=== PATIENT | female | born 1985 | race Caucasian/White ===

== ENCOUNTER 2019-09-27 20:35 | Emergency (ER) | payer MEDICAID ==
[~2019-09-27] VITALS: Ht 157.5 cm; Wt 66.8 kg
[~2019-09-27 20:35] MED LIST: NO HOME MEDS
[2019-09-27 20:38] VITALS: BP 104/66
--- NOTE | 2019-09-27 22:39 | NUR ---
Spica splint placed on right hand
== END 2019-09-27 22:56 | disposition home or self-care (01) ==
LOC: ER 20:36
DX: M25.531 Pain in right wrist (principal); Z56.0 Unemployment, unspecified; Z79.2 Long term (current) use of antibiotics; Z88.8 Allergy status to other drugs, medicaments and biological substances
CPT/HCPCS: 29125; 73130; 99283

== ENCOUNTER 2024-12-11 00:12 | Emergency (ER) | payer MEDICAID ==
[~2024-12-11] VITALS: Ht 157.5 cm; Wt 72.0 kg
--- NOTE | 2024-12-11 00:31 | Physician Documentation ---
History of Present Illness ~ Chief Complaint: Anxiety Stated Complaint: PANIC ATTACK Time Seen by MD: 00:28 Primary Medical Doctor: Dr. Gallagher HPI Patient presents to the emergency room with chief complaint labeled as panic attack. Upon entering to the room patient is playing on her phone. Asked how she is doing she states she is okay. Asked if that has anything I can do for her and she said no Medication Reconciliation Allergies: Coded Allergies: erythromycin base (Unverified Allergy, Unknown, 12/11/24) hydrocodone bit (Unverified Allergy, Unknown, 12/11/24) propoxyphene napsylate (Unverified Allergy, Unknown, 12/11/24) Miscellaneous Medications Home Med List (No Home Medications), (Reported) Past Medical History Past Medical History: No Pertinent History Past Surgical History: Alcohol Use: None Drug Use: none Lives with: Other Lives In: Home Occupation: unemployed Review of Systems ROS All review of systems negative except as per HPI Physical Exam Vital Signs: Temperature: 98.2, Source: Oral, Heart Rate: 108, Respiratory Rat e: 18, BP: 146/88, Pulse Oximetry: 96, Weight: 72.000 Oxygen Flow Rate: 0 Physical Exam General: Patient is awake, alert, oriented x4 in no acute distress and well appearing. Playing on her phone Head: Normocephalic and atraumatic. Eyes: Conjunctival normal. EOMI. PERRL. ENT: Mucous membranes moist. Neck: Supple, trachea is midline. Chest: Clear to auscultation bilaterally without rales, rhonchi, or wheezes. There is no accessory muscle use or retractions. Cardiac: Heart rate 90 and regular without murmurs, gallops, or rubs. Progress Results/Orders Results/Orders Vital Signs 12/11/24 00:13 Temp 98.2 Pulse 108 Resp 18 B/P (MAP) 146/88 Pulse Ox 96 O2 Flow Rate 0 Medical Decision Making Additional information obtaine: old records Findings Patient presents to the emergency room to be evaluated brought in by EMS for apparent panic attack however she has no complaints at this time. I do not feel emergent labs or imaging is necessary. Vital signs stable Differential Dx:Considerations: Include: Alcohol abuse, Anxiety, Bipolar disorder, Conversion disorder, Depression, Encephaloathy, Homicidal, Panic disorder, Personality disorder, Schizophrenia, Substance abuse, Suicidal, Other Departure Disposition: HOME / SELF CARE / HOMELESS Impression: Primary Impression: General medical exam Condition: Stable Discharge Instructions: General Discharge Instructions Referrals: NO PRIMARY CARE PROVIDER (PCP) Signature Scribe Signature: No scribe Attestation: The note accurately reflects work and decisions made by me.oRb Quigley MD 12/11/24 00:31 ROB QUIGLEY MD Dec 11, 2024 00:31
[2024-12-11 00:55] VITALS: BP 146/88; PULSE 89; RESP 18; O2SAT 96
[2024-12-11 01:08] VITALS: TEMP 98.2
== END 2024-12-11 01:10 | disposition home or self-care (01) ==
LOC: ER 00:12
DX: Z00.00 Encounter for general adult medical examination without abnormal findings (principal); F41.0 Panic disorder [episodic paroxysmal anxiety]; Z88.1 Allergy status to other antibiotic agents; Z88.5 Allergy status to narcotic agent; Z56.0 Unemployment, unspecified; Z98.890 Other specified postprocedural states
CPT/HCPCS: 99284